=== PATIENT | male | born 1995 | race Caucasian/White ===

== ENCOUNTER 2017-09-30 13:07 | Inpatient (IN) | payer OTHER ==
[~2017-09-30] VITALS: Ht 170.2 cm; Wt 73.5 kg
[2017-09-30 14:20] VITALS: BP 132/74
[2017-09-30] MEDS ORDERED: LOPERAMIDE HCL 2 MG CAPSULE PO PRN ×2 (14:45)
[2017-09-30] MEDS ORDERED: MIRALAX 17 GM POWD.PACK PO PRN (14:45)
[2017-09-30] MEDS ORDERED: ONDANSETRON 4 MG/2 ML VIAL IM PRN (14:45)
[2017-09-30] MEDS ORDERED: MAGNESIUM HYDROXIDE 30 ML LIQUID UDC PO PRN (14:45)
[2017-09-30] MEDS ORDERED: BUPRENORPHINE HCL 2 MG TAB.SUBL SL PRN (14:45)
[2017-09-30] MEDS ORDERED: MAG HYDROX/AL HYDROX/SIMETH 30 ML LIQUID UDC PO PRN (14:45)
[2017-09-30] MEDS ORDERED: DICYCLOMINE HCL 20 MG TABLET PO PRN (14:45)
[2017-09-30] MEDS ORDERED: ONDANSETRON ODT 4 MG TAB.RAPDIS SL PRN (14:45)
[2017-09-30] MEDS ORDERED: diphenhydrAMINE 50 MG CAPSULE PO PRN (14:45)
[2017-09-30] MEDS ORDERED: ACETAMINOPHEN 325 MG TABLET PO PRN (14:45)
[2017-09-30] MEDS ORDERED: IBUPROFEN 600 MG TABLET PO PRN (14:45)
[2017-09-30] MEDS ORDERED: LORAZEPAM 2 MG/1 ML VIAL IM PRN (14:45)
[2017-09-30 15:13] LABS: BASOPHILS # (AUTO) 0.1 K/uL (0.0-8.0); BASOPHILS % (AUTO) 0.8 % (0.0-2.0); EOSINOPHILS # (AUTO) 0.3 K/uL (0.0-0.7); EOSINOPHILS % (AUTO) 1.9 % (0.0-7.0); WHITE BLOOD COUNT (AUTO) 14.9 K/uL (3.6-10.2)
[2017-09-30 15:22] LABS: ETHANOL < 3 MG/DL (0-0); HEMATOCRIT 36.7 % (36.7-47.1); HEMOGLOBIN 13.1 g/dL (12.5-16.3); LYMPHOCYTES # (AUTO) 2.6 K/uL (20.0-40.0); LYMPHOCYTES % (AUTO) 17.5 % (20.5-51.5); MEAN CORPUSCULAR HEMOGLOBIN 33.6 uug (23.8-33.4); MEAN CORPUSCULAR HGB CONC 36 g/dL (32.5-36.3); MEAN CORPUSCULAR VOLUME 93.9 fL (73.0-96.2); MONOCYTES # (AUTO) 1.1 K/uL (2.0-10.0); MONOCYTES % (AUTO) 7.1 % (0.0-11.0); NEUTROPHILS # (AUTO) 10.8 K/uL (1.8-8.9); NEUTROPHILS % (AUTO) 72.7 % (38.5-71.5); PLATELET COUNT (AUTO) 245 K/uL (152-348); RED BLOOD CELL COUNT(AUTO) 3.91 MIL/uL (4.06-5.63)
[2017-09-30 15:24] LABS: ALANINE AMINOTRANSFERASE 36 U/L (16-63); ALKALINE PHOSPHATASE 64 U/L (50-136); AMYLASE 34 U/L (25-115); ASPARTATE AMINOTRANSFERASE 21 U/L (15-37); BILIRUBIN,TOTAL 4.1 mg/dL (0.2-1.0); CARBON DIOXIDE 27 mmol/L (21-32); CHLORIDE 103 mmol/L (98-107); CREATININE 0.7 mg/dL (0.6-1.3); GLUCOSE 111 mg/dL (74-106); POTASSIUM 3.7 mmol/L (3.5-5.1); TOTAL PROTEIN, SERUM 7.7 g/dL (6.4-8.2); UREA NITROGEN, BLOOD 11 mg/dL (7-18)
[2017-09-30 15:35] LABS: THYROID STIMULATING HORMONE 1.625 mIU/mL (0.358-3.740)
[2017-09-30 16:00] VITALS: BP 156/94
[2017-09-30 17:07] LABS: *AMPHETAMINE, URINE NEGATIVE (NEGATIVE); *BARBITURATE, URINE NEGATIVE (NEGATIVE); *CANNABINOID, URINE POSITIVE (NEGATIVE); *COCCAINE, URINE NEGATIVE (NEGATIVE); *OPIATE, URINE NEGATIVE (NEGATIVE); *PHENCYCLIDINE SCREEN,URINE NEGATIVE (NEGATIVE)
[2017-09-30] MEDS: CLONIDINE HCL 0.1 MG TABLET PO PRN (18:19)
[2017-09-30 20:00] VITALS: BP 124/70
[2017-09-30] MEDS: METHOCARBAMOL 750 MG TABLET PO PRN (20:13)
[2017-09-30] MEDS: LORAZEPAM 1 MG TABLET PO PRN ×2 (20:13→20:14)
[2017-09-30 21:14] VITALS: BP 128/70
[2017-10-01 03:50] VITALS: BP 119/56
[2017-10-01] MEDS: LORAZEPAM 1 MG TABLET PO PRN ×3 (04:01→21:21)
[2017-10-01 08:00] VITALS: BP 134/80
[2017-10-01] MEDS: MULTIVITAMINS,THERAPEUTIC TABLET PO SCH (08:56)
[2017-10-01] MEDS: FOLIC ACID 1 MG TABLET PO SCH (08:56)
[2017-10-01] MEDS: THIAMINE HCL 100 MG TABLET PO SCH (08:56)
[2017-10-01] MEDS ORDERED: TUBERCULIN,PURIF.PROT.DERIV. 5 TU/0.1 ML TEST ID ONE (09:00)
[2017-10-01 12:00] VITALS: BP 130/82
[2017-10-01] MEDS ORDERED: METH-406 PO (15:31)
[2017-10-01] MEDS ORDERED: DICY20TA28 PO (15:31)
[2017-10-01] MEDS ORDERED: GABA-534 PO (15:31)
[2017-10-01] MEDS ORDERED: CLON0.1T14 PO (15:31)
[2017-10-01] MEDS ORDERED: IBUP-1955 PO (15:31)
[2017-10-01] MEDS ORDERED: HYDR-3895 PO (15:31)
[2017-10-01] MEDS ORDERED: DIPH50CA37 PO (15:31)
[2017-10-01 16:00] VITALS: BP 115/73
[2017-10-01 20:00] VITALS: BP 141/88
[2017-10-01] MEDS: GABAPENTIN 300 MG CAPSULE PO SCH (21:20)
[2017-10-01] MEDS: CLONIDINE HCL 0.1 MG TABLET PO SCH (21:22)
[2017-10-02 06:51] LABS: BASOPHILS # (AUTO) 0.1 K/uL (0.0-8.0); EOSINOPHILS # (AUTO) 0.3 K/uL (0.0-0.7); HEMATOCRIT 33.5 % (36.7-47.1); LYMPHOCYTES # (AUTO) 3.5 K/uL (20.0-40.0); LYMPHOCYTES % (AUTO) 32.8 % (20.5-51.5); MEAN CORPUSCULAR HEMOGLOBIN 34.3 uug (23.8-33.4); MEAN CORPUSCULAR HGB CONC 36 g/dL (32.5-36.3); MEAN CORPUSCULAR VOLUME 95.6 fL (73.0-96.2); MONOCYTES # (AUTO) 0.8 K/uL (2.0-10.0); MONOCYTES % (AUTO) 7.1 % (0.0-11.0); NEUTROPHILS % (AUTO) 56.1 % (38.5-71.5); PLATELET COUNT (AUTO) 207 K/uL (152-348); WHITE BLOOD COUNT (AUTO) 10.7 K/uL (3.6-10.2)
[2017-10-02] MEDS: LORAZEPAM 1 MG TABLET PO PRN (07:05)
[2017-10-02 07:42] LABS: ALANINE AMINOTRANSFERASE 26 U/L (16-63); ALKALINE PHOSPHATASE 54 U/L (50-136); ASPARTATE AMINOTRANSFERASE 18 U/L (15-37); BILIRUBIN,DIRECT 0.2 mg/dL (0.0-0.2); CARBON DIOXIDE 28 mmol/L (21-32); CHLORIDE 104 mmol/L (98-107); CREATININE 0.7 mg/dL (0.6-1.3); GLUCOSE 94 mg/dL (74-106); MAGNESIUM 1.9 mg/dL (1.8-2.4); PHOSPHOROUS 4.2 mg/dL (2.5-4.9); POTASSIUM 4.1 mmol/L (3.5-5.1); TOTAL PROTEIN, SERUM 6.8 g/dL (6.4-8.2); UREA NITROGEN, BLOOD 13 mg/dL (7-18)
[2017-10-02 08:00] VITALS: BP 125/76
[2017-10-02 08:06] LABS: HEPATITIS B SURFACE AG Negative (Negative)
[2017-10-02 08:31] LABS: BILIRUBIN,DIRECT 0.2 mg/dL (0.0-0.2)
[2017-10-02] MEDS: FOLIC ACID 1 MG TABLET PO SCH (08:38)
[2017-10-02] MEDS: THIAMINE HCL 100 MG TABLET PO SCH (08:38)
[2017-10-02] MEDS: MULTIVITAMINS,THERAPEUTIC TABLET PO SCH (08:39)
[2017-10-02] MEDS: GABAPENTIN 300 MG CAPSULE PO SCH ×2 (08:39→20:53)
[2017-10-02] MEDS: CLONIDINE HCL 0.1 MG TABLET PO SCH ×2 (08:43→20:54)
[2017-10-02 12:00] VITALS: BP 130/67
[2017-10-02 16:00] VITALS: BP 137/86
[2017-10-02] MEDS: HYDROXYZINE PAMOATE 25 MG CAPSULE PO PRN (18:16)
[2017-10-02] MEDS: CLONIDINE HCL 0.1 MG TABLET PO PRN (18:17)
[2017-10-02 20:00] VITALS: BP 139/62
[2017-10-02] MEDS: METHOCARBAMOL 750 MG TABLET PO PRN (21:07)
[2017-10-03] VITALS: BP 137/62
[2017-10-03] MEDS: HYDROXYZINE PAMOATE 25 MG CAPSULE PO PRN (00:09)
[2017-10-03 08:00] VITALS: BP 142/77
[2017-10-03 08:45] VITALS: BP 141/77
[2017-10-03] MEDS: GABAPENTIN 300 MG CAPSULE PO SCH (08:45)
[2017-10-03] MEDS: CLONIDINE HCL 0.1 MG TABLET PO SCH (08:45)
[2017-10-03] MEDS: FOLIC ACID 1 MG TABLET PO SCH (08:45)
[2017-10-03] MEDS: MULTIVITAMINS,THERAPEUTIC TABLET PO SCH (08:45)
[2017-10-03] MEDS: THIAMINE HCL 100 MG TABLET PO SCH (08:45)
== END 2017-10-03 09:35 | disposition other institution (70) | DRG 895 ==
LOC: SRC 13:55
PROVIDERS: ADMIT Internal Medicine; ATTEND Internal Medicine
PROC: HZ2ZZZZ Detoxification Services for Substance Abuse Treatment (ICD-10-PCS; principal; 2017-09-30)
PROC: HZ41ZZZ Group Counseling for Substance Abuse Treatment, Behavioral (ICD-10-PCS; 2017-10-01)
DX: F11.23 Opioid dependence with withdrawal (principal); I15.9 Secondary hypertension, unspecified; R17 Unspecified jaundice; F10.239 Alcohol dependence with withdrawal, unspecified; F14.10 Cocaine abuse, uncomplicated; D58.0 Hereditary spherocytosis; F12.20 Cannabis dependence, uncomplicated; T50.901D Poisoning by unspecified drugs, medicaments and biological substances, accidental (unintentional), subsequent encounter; F41.9 Anxiety disorder, unspecified; Y90.0 Blood alcohol level of less than 20 mg/100 ml; Z81.8 Family history of other mental and behavioral disorders; F90.9 Attention-deficit hyperactivity disorder, unspecified type; F81.9 Developmental disorder of scholastic skills, unspecified; F39 Unspecified mood [affective] disorder; D72.823 Leukemoid reaction
CPT/HCPCS: 36415; 70030-TC; 71045; 80307; 80349; 83735; 84100; 84443; 85025; 86580; 86592; 86705; 86803; 87340; 87806; A4663; G0480